=== PATIENT | male | born 1935 | race Caucasian/White ===

== ENCOUNTER 2016-05-26 14:33 | Observation (INO) | payer MEDICARE, OTHER ==
[2016-05-26] VITALS (10 sets, daily range): BP systolic 110–164; BP diastolic 68–107; PULSE 88–125; RESP 18–22; TEMP 98–98.4; O2SAT 90–97
[~2016-05-26] VITALS: Ht 180.3 cm; Wt 113.0 kg
[2016-05-26] MEDS ORDERED: DILTIAZEM HCL 25 MG/5 ML VIAL IV PUSH ONE (15:00)
[2016-05-26] MEDS ORDERED: SODIUM CHLORIDE 0.9% FLUSH 5 ML FLUSH IVF PRN ×2 (15:00→18:15)
[2016-05-26] MEDS ORDERED: OMEP20TA PO (15:01)
[2016-05-26] MEDS ORDERED: VITA10003 PO (15:01)
[2016-05-26] MEDS ORDERED: METO25TA6 PO (15:01)
[2016-05-26] MEDS ORDERED: ALLO100T PO (15:01)
[2016-05-26] MEDS ORDERED: LISI-519 PO (15:01)
[2016-05-26] MEDS ORDERED: METF500T PO (15:01)
[2016-05-26] MEDS ORDERED: XARE20TA PO (15:01)
[2016-05-26] MEDS ORDERED: FISH1000 PO (15:01)
[2016-05-26] MEDS ORDERED: ROSU1TAB4 PO (15:01)
[2016-05-26 15:20] LABS: BASOPHIL # 0.1 TH/MM3 (0-0.2); BASOPHIL % 0.6 % (0.0-2.0); EOSINOPHIL # 0.2 TH/MM3 (0-0.4); EOSINOPHIL % 1.9 % (0.0-4.0); HEMATOCRIT 45.2 % (39.0-51.0); HEMO FLAGS DIFF FINAL; LYMPH % 14.9 % (9.0-44.0); LYMPHOCYTE # 1.3 TH/MM3 (1.0-4.8); MEAN CELL VOLUME 96.8 FL (80.0-100.0); MEAN CORPUSCULAR HEMOGLOBIN 32.5 PG (27.0-34.0); MEAN CORPUSCULAR HGB CONC 33.6 % (32.0-36.0); NEUT % 69.6 % (16.0-70.0); PLATELET COUNT 145 TH/MM3 (150-450); RED BLOOD COUNT 4.67 MIL/MM3 (4.50-5.90); WHITE BLOOD COUNT 8.7 TH/MM3 (4.0-11.0)
[2016-05-26 15:29] LABS: CHLORIDE 104 MEQ/L (98-107); SODIUM (NA) 141 MEQ/L (136-145)
[2016-05-26 15:31] LABS: POTASSIUM 4.5 MEQ/L (3.5-5.1)
[2016-05-26 15:33] LABS: ANION GAP 11 MEQ/L (5-15); BICARBONATE 26.4 MEQ/L (21.0-32.0); MAGNESIUM 1.9 MG/DL (1.5-2.5)
[2016-05-26 15:34] LABS: BLOOD UREA NITROGEN 14 MG/DL (7-18)
[2016-05-26 15:36] LABS: ALT (GPT) 41 U/L (12-78); AST (GOT) 26 U/L (15-37)
[2016-05-26 15:37] LABS: GLOMERULAR FILTRATION RATE 58 ML/MIN (>89)
[2016-05-26 15:38] LABS: TOTAL BILIRUBIN ADULT 1.4 MG/DL (0.2-1.0)
--- NOTE | 2016-05-26 15:38 | PD ---
HPI Chief Complaint: Chest Pain Time Seen by Provider: 14:54 Travel History International Travel<30 days: No Contact w/Intl Traveler<30days: No Traveled to known affect area: No History of Present Illness HPI Patient 81-year-old male presents emergency department for evaluation of chest pain. Patient states she has a history of reflux but this feels somewhat different. He points the center of his chest. No radiation of the pain is been going on since 0100. Denies any shortness of breath radiation to his arm nausea or vomiting. States he has a history of atrial fibrillation and is on Xarelto for it. States the pain was sharp in nature. States right now it's very mild. PFSH Past Medical History Hx Anticoagulant Therapy: Yes Atrial Fibrillation: Yes Cardiovascular Problems: Yes (htn on meds, a-fib) High Cholesterol: Yes Diabetes: Yes Patient Takes Glucophage: Yes GERD: Yes Gout: Yes Hypertension: Yes Influenza Vaccination: No Past Surgical History Cholecystectomy: Yes Social History Alcohol Use: Yes (DAILY) Tobacco Use: No Substance Use: No Allergies-Medications (Allergen,Severity, Reaction): Coded Allergies: No Known Allergies (Unverified , 05/26/16) Reported Meds & Prescriptions Reported Meds & Active Scripts Active Reported Metoprolol Succinate ER 24 HR (Metoprolol Succinate) 25 Mg Tab 25 Mg PO DAILY Lisinopril 5 Mg Tab 5 Mg PO DAILY Allopurinol 100 Mg Tab 100 Mg PO DAILY Fish Oil ([place]-3 Fatty Acids) 1,000 Mg Cap 1 Tab PO DAILY Omeprazole 20 Mg Tab 20 Mg PO DAILY Xarelto (Rivaroxaban) 20 Mg Tab 20 Mg PO DAILY Rosuvastatin (Rosuvastatin Calcium) 5 Mg Tab 5 Mg PO DAILY Metformin (Metformin HCl) 500 Mg Tab 500 Mg PO DAILY With a meal Vitamin D-3 (Cholecalciferol) 1,000 Unit Tab 2,000 Units PO DAILY Review of Systems Except as stated in HPI: all other systems reviewed are Neg Physical Exam Narrative GENERAL: Well-developed well-nourished in no apparent distress. SKIN: Warm and dry. HEAD: Atraumatic. Normocephalic. EYES: Pupils equal and round. No scleral icterus. No injection or drainage. ENT: No nasal bleeding or discharge. Mucous membranes pink and moist. NECK: Trachea midline. No JVD. CARDIOVASCULAR: Irregularly irregular and tachycardic.. No murmur appreciated. RESPIRATORY: No accessory muscle use. Clear to auscultation. Breath sounds equal bilaterally. GASTROINTESTINAL: Abdomen soft, non-tender, nondistended. Hepatic and splenic margins not palpable. MUSCULOSKELETAL: No obvious deformities. No clubbing. No cyanosis. No edema. NEUROLOGICAL: Awake and alert. No obvious cranial nerve deficits. Motor grossly within normal limits. Normal speech. PSYCHIATRIC: Appropriate mood and affect; insight and judgment normal. Data Data Last Documented VS Vital Signs Date Time Temp Pulse Resp B/P Pulse Ox O2 Delivery O2 Flow Rate FiO2 05/26/16 17:35 18 05/26/16 17:29 100 115/72 97 Room Air 05/26/16 14:48 98.4 Orders Electrocardiogram (05/26/16 14:54) Ckmb (Isoenzyme) Profile (05/26/16 14:54) Complete Blood Count With Diff (05/26/16 14:54) Comprehensive Metabolic Panel (05/26/16 14:54) Magnesium (Mg) (05/26/16 14:54) Prothrombin Time / Inr (Pt) (05/26/16 14:54) Act Partial Throm Time (Ptt) (05/26/16 14:54) Troponin I (05/26/16 14:54) Chest, Single Ap (05/26/16 14:54) Ecg Monitoring (05/26/16 14:54) Bilateral Bp Monitoring (05/26/16 14:54) Iv Access Insert/Monitor (05/26/16 14:54) Oximetry (05/26/16 14:54) Oxygen Administration (05/26/16 14:54) Sodium Chloride 0.9% Flush (Ns Flush) (05/26/16 15:00) Diltiazem Inj (Cardizem Inj) (05/26/16 15:00) Ct Pulmonary Angiogram (05/26/16 ) Morphine Inj (Morphine Inj) (05/26/16 16:45) Troponin I (05/26/16 18:00) Ckmb (Isoenzyme) Profile (05/26/16 18:00) Iohexol 350 Inj (Omnipaque 350 Inj) (05/26/16 17:42) Admit Order (Ed Use Only) (05/26/16 18:02) Activity Bed Rest With Brp (05/26/16 18:02) Vital Signs (Adult) Q4H (05/26/16 18:02) Cardiac Rhythm .As Directed (05/26/16 18:02) ^ Notify Dr: Other .PRN (05/26/16 18:02) ^ Notify Dr. Parameters (05/26/16 18:02) Resp Oxygen Nasal Cannula (05/26/16 ) Diet Heart Healthy (05/26/16 Dinner) Ckmb (Isoenzyme) Profile (05/26/16 21:00) Troponin I (05/26/16 21:00) Electrocardiogram (05/26/16 21:00) ^ Obtain (05/26/16 18:02) Sodium Chloride 0.9% Flush (Ns Flush) (05/26/16 18:15) Sodium Chloride 0.9% Flush (Ns Flush) (05/26/16 21:00) Ondansetron Inj (Zofran Inj) (05/26/16 18:15) Pantoprazole (Protonix) (05/26/16 18:15) Insurance Instructor / Telemetry DARION.Q8H (05/26/16 18:02) Labs Laboratory Tests Test 05/26/16 05/26/16 05/26/16 14:50 15:42 18:00 White Blood Count 8.7 TH/MM3 Red Blood Count 4.67 MIL/MM3 Hemoglobin 15.2 GM/DL Hematocrit 45.2 % Mean Corpuscular Volume 96.8 FL Mean Corpuscular Hemoglobin 32.5 PG Mean Corpuscular Hemoglobin 33.6 % Concent Red Cell Distribution Width 13.0 % Platelet Count 145 TH/MM3 Mean Platelet Volume 9.4 FL Neutrophils (%) (Auto) 69.6 % Lymphocytes (%) (Auto) 14.9 % Monocytes (%) (Auto) 13.0 % Eosinophils (%) (Auto) 1.9 % Basophils (%) (Auto) 0.6 % Neutrophils # (Auto) 6.0 TH/MM3 Lymphocytes # (Auto) 1.3 TH/MM3 Monocytes # (Auto) 1.1 TH/MM3 Eosinophils # (Auto) 0.2 TH/MM3 Basophils # (Auto) 0.1 TH/MM3 CBC Comment DIFF FINAL Differential Comment Sodium Level 141 MEQ/L Potassium Level 4.5 MEQ/L Chloride Level 104 MEQ/L Carbon Dioxide Level 26.4 MEQ/L Anion Gap 11 MEQ/L Blood Urea Nitrogen 14 MG/DL Creatinine 1.20 MG/DL Estimat Glomerular Filtration 58 ML/MIN Rate Random Glucose 159 MG/DL Calcium Level 8.6 MG/DL Magnesium Level 1.9 MG/DL Total Bilirubin 1.4 MG/DL Aspartate Amino Transf 26 U/L (AST/SGOT) Alanine Aminotransferase 41 U/L (ALT/SGPT) Alkaline Phosphatase 53 U/L Total Creatine Kinase 81 U/L 50 U/L Troponin I 0.03 NG/ML 0.04 NG/ML Total Protein 7.9 GM/DL Albumin 3.9 GM/DL Prothrombin Time 13.2 SEC Prothromb Time International 1.2 RATIO Ratio Activated Partial 38.9 SEC Thromboplast Time MDM Medical Decision Making Medical Screen Exam Complete: Yes Emergency Medical Condition: Yes Interpretation(s) EKG shows age fibrillation with RVR at a rate of 131. Left axis deviation abnormal R wave progression. Probable remote inferior infarct. No concerning ST T changes. This an abnormal EKG. Differential Diagnosis Age fibrillation with RVR, ACS, AMI, electrolyte abnormality. Narrative Course Patient was roomed in emergency department, appears well on arrival and tachycardic. Blood pressure is elevated. Was given Cardizem 28 mg (0.25 mg/kg ) bolus. Has orders for drip. Has clinical possibility for PE, CT PE ordered. Dr. Grijalva to follow up and disposition appropriately (likely to ICU). Diagnosis Primary Impression: Atrial fibrillation Qualified Code: I48.0 - Paroxysmal atrial fibrillation Kai Lechuga MD May 26, 2016 15:38
[2016-05-26 15:39] LABS: ALKALINE PHOSPHATASE 53 U/L (45-117)
[2016-05-26 15:46] LABS: CREATINE KINASE 81 U/L (39-308)
[2016-05-26 16:03] LABS: APTT (PATIENT) 38.9 SEC (24.3-30.1); INTERNATIONAL NORMALIZED RATIO 1.2 RATIO; PROTHROMBIN TIME - PATIENT 13.2 SEC (9.8-11.6)
--- NOTE | 2016-05-26 16:11 | RADHPO ---
EXAM DATE/TIME: 05/26/2016 16:04 [facility] COMPARISON: No previous studies available for comparison. INDICATIONS : Chest pains today MEDICAL HISTORY : None. SURGICAL HISTORY : None. ENCOUNTER: Initial ACUITY: 1 day PAIN SCORE: 8/10 LOCATION: Bilateral chest FINDINGS: A single view of the chest demonstrates the lungs to be symmetrically aerated without evidence of mas s, infiltrate or effusion. The heart size is mildly prominent. There is mild streaky opacity at the right lung base and left perihilar region. Osseous structures are intact. CONCLUSION: 1. Mild streaky opacities the right lung base and left perihilar region which may represent atelectas is. 2. Mild cardiomegaly. Og Clayton MD on May 26, 2016 at 16:09 Board Certified Radiologist. This report was verified electronically.
--- NOTE | 2016-05-26 16:42 | PD ---
Physical Exam Date Seen by Provider: May 26, 2016 Narrative Care was assumed from Dr. Lechuga at [address] for PE. Patient presented with chest pain that started last night. Radiates up into his neck. He was found to be in atrial fibrillation with RVR. He has been treated with Cardizem. His heart rate is now slowed. He states he feels better but he does still have some pain. Patient reports a long history of intermittent atrial fibrillation. He is on Xarelto for same. He states that he has been traveling and has missed a couple doses of the Xarelto. Patient also reports a history of reflux. He states that he can usually burp and the reflux pain will go away. He states that he has burped several times in the last 12 hours and it has made no change in his pain. Data Data Last Documented VS Vital Signs Date Time Temp Pulse Resp B/P Pulse Ox O2 Delivery O2 Flow Rate FiO2 05/26/16 17:35 18 05/26/16 17:29 100 115/72 97 Room Air 05/26/16 14:48 98.4 Orders Electrocardiogram (05/26/16 14:54) Ckmb (Isoenzyme) Profile (05/26/16 14:54) Complete Blood Count With Diff (05/26/16 14:54) Comprehensive Metabolic Panel (05/26/16 14:54) Magnesium (Mg) (05/26/16 14:54) Prothrombin Time / Inr (Pt) (05/26/16 14:54) Act Partial Throm Time (Ptt) (05/26/16 14:54) Troponin I (05/26/16 14:54) Chest, Single Ap (05/26/16 14:54) Ecg Monitoring (05/26/16 14:54) Bilateral Bp Monitoring (05/26/16 14:54) Iv Access Insert/Monitor (05/26/16 14:54) Oximetry (05/26/16 14:54) Oxygen Administration (05/26/16 14:54) Sodium Chloride 0.9% Flush (Ns Flush) (05/26/16 15:00) Diltiazem Inj (Cardizem Inj) (05/26/16 15:00) Ct Pulmonary Angiogram (05/26/16 ) Morphine Inj (Morphine Inj) (05/26/16 16:45) Troponin I (05/26/16 18:00) Ckmb (Isoenzyme) Profile (05/26/16 18:00) Electrocardiogram (05/26/16 18:00) Iohexol 350 Inj (Omnipaque 350 Inj) (05/26/16 17:42) Labs Laboratory Tests Test 05/26/16 05/26/16 14:50 15:42 White Blood Count 8.7 TH/MM3 Red Blood Count 4.67 MIL/MM3 Hemoglobin 15.2 GM/DL Hematocrit 45.2 % Mean Corpuscular Volume 96.8 FL Mean Corpuscular Hemoglobin 32.5 PG Mean Corpuscular Hemoglobin 33.6 % Concent Red Cell Distribution Width 13.0 % Platelet Count 145 TH/MM3 Mean Platelet Volume 9.4 FL Neutrophils (%) (Auto) 69.6 % Lymphocytes (%) (Auto) 14.9 % Monocytes (%) (Auto) 13.0 % Eosinophils (%) (Auto) 1.9 % Basophils (%) (Auto) 0.6 % Neutrophils # (Auto) 6.0 TH/MM3 Lymphocytes # (Auto) 1.3 TH/MM3 Monocytes # (Auto) 1.1 TH/MM3 Eosinophils # (Auto) 0.2 TH/MM3 Basophils # (Auto) 0.1 TH/MM3 CBC Comment DIFF FINAL Differential Comment Sodium Level 141 MEQ/L Potassium Level 4.5 MEQ/L Chloride Level 104 MEQ/L Carbon Dioxide Level 26.4 MEQ/L Anion Gap 11 MEQ/L Blood Urea Nitrogen 14 MG/DL Creatinine 1.20 MG/DL Estimat Glomerular Filtration 58 ML/MIN Rate Random Glucose 159 MG/DL Calcium Level 8.6 MG/DL Magnesium Level 1.9 MG/DL Total Bilirubin 1.4 MG/DL Aspartate Amino Transf 26 U/L (AST/SGOT) Alanine Aminotransferase 41 U/L (ALT/SGPT) Alkaline Phosphatase 53 U/L Total Creatine Kinase 81 U/L Troponin I 0.03 NG/ML Total Protein 7.9 GM/DL Albumin 3.9 GM/DL Prothrombin Time 13.2 SEC Prothromb Time International 1.2 RATIO Ratio Activated Partial 38.9 SEC Thromboplast Time [facility] Supervised Visit with ALVARO: No Narrative Course Patient is currently awake and alert and in no distress. His heart rate is in the 80s. He is in atrial fibrillation. He is currently awaiting his CT for PE. It has been about an hour 45 minutes since he received a Cardizem bolus. He is not on a drip. Rate is controlled in the 80s. CT CONCLUSION: 1. No evidence of pulmonary embolism. 2. Spiculated mass in the right lower lobe of concern for primary bronchogenic carcinoma. Diagnosis Primary Impression: Chest pain Qualified Code: R07.9 - Chest pain, unspecified type Additional Impression: Atrial fibrillation Qualified Code: I48.0 - Paroxysmal atrial fibrillation Admitting Information Admitting Physician Requests: Observation Condition: Stable Sol Grijalva MD May 26, 2016 16:42
[2016-05-26] MEDS ORDERED: MORPHINE SULFATE 4 MG/ML INJ IV ONE (16:45)
[2016-05-26] MEDS ORDERED: IOHEXOL 350 MG/ML 10 ML VIAL (for RAD DIAG) IV ONE (17:42)
--- NOTE | 2016-05-26 17:53 | RADHPO ---
EXAM DATE/TIME: 05/26/2016 17:06 [facility] COMPARISON: No previous studies available for comparison. INDICATIONS : Chest pain; evaluate for embolism. IV CONTRAST: 72 cc Omnipaque 350 (iohexol) IV RADIATION DOSE: 21.44 CTDIvol (mGy) MEDICAL HISTORY : Cardiovascular disease. Gastroesophageal reflux disease. Hypertension.Diabetes. SURGICAL HISTORY : Cholecystectomy. ENCOUNTER: Initial ACUITY: 1 day PAIN SCALE: 3/10 LOCATION: Bilateral upper chest TECHNIQUE: Volumetric scanning of the chest was performed using a pulmonary embolism protocol MIP images were re constructed. Using automated exposure control and adjustment of the mA and/or kV according to patien t size, radiation dose was kept as low as reasonably achievable to obtain optimal diagnostic quality images. FINDINGS: PULMONARY ARTERIES: No filling defects are seen in the pulmonary arteries through the segmental level. LUNGS: There is no consolidation or pneumothorax . There is a 2.6 x 1.9 cm spiculated mass in the right lowe r lobe. There is scarring and/or atelectasis in the posterior lung bases. PLEURAE: There is no pleural thickening or pleural effusion. MEDIASTINUM: There is good visualization of the great vessels of the middle mediastinum. No evidence of mediastin al or hilar adenopathy/mass. Mild coronary artery calcifications are present. There small scattered r eactive appearing lymph nodes. MUSCULOSKELETAL: Within normal limits for patient age. MISCELLANEOUS: The visualized upper abdominal organs demonstrate no acute abnormality. CONCLUSION: 1. No evidence of pulmonary embolism. 2. Spiculated mass in the right lower lobe of concern for primary bronchogenic carcinoma. Og Clayton MD on May 26, 2016 at 17:50 Board Certified Radiologist. This report was verified electronically.
[2016-05-26] MEDS ORDERED: ONDANSETRON HCL 4 MG/2 ML VIAL IV PRN (18:15)
[2016-05-26] MEDS: PANTOPRAZOLE SOD 40 MG DELAYED RELEASE TAB PO SCH (18:36)
[2016-05-26] MEDS ORDERED: SODIUM CHLORIDE 0.9% FLUSH 5 ML FLUSH IVF SCH (21:00)
[2016-05-27] VITALS (8 sets, daily range): BP systolic 116–149; BP diastolic 83–91; PULSE 88–110; RESP 12–26; TEMP 97.9–98.3; O2SAT 92–95
[2016-05-27] MEDS: PANTOPRAZOLE SOD 40 MG DELAYED RELEASE TAB PO SCH (09:00)
[2016-05-27] MEDS ORDERED: REGADENOSON INJ 0.4 MG/5 ML SYR IV ONE (10:03)
--- NOTE | 2016-05-27 10:16 | HHI.HP ---
[facility]Staff Admission Diagnosis chest pain, AF with RVR Diagnoses: (1) Chest pain Diagnosis: Principal (2) Atrial fibrillation Diagnosis: Principal (3) Lung mass Diagnosis: Principal (4) Hypertension Diagnosis: Secondary (5) Hyperlipidemia Diagnosis: Secondary Chief Complaint: Chest pain Travel History International Travel<30 Days: No Contact w/Intl Traveler <30 Da: No Traveled to Known Affected Are: No History of Present Illness 81-year-old male with known history of hypertension, hyperlipidemia, chronic atrial fibrillation who is visiting here from [facility] who presented to hospital because acute onset of chest pain. Patient states that at approximately 1 AM in the morning he started developing chest discomfort 5/ 10 on a pain scale in the center part of his chest without any radiation to the neck, back, shoulder, arms. Denies any nausea, vomiting, diaphoresis, lightheadedness, dizziness. Patient states that the pain is antagonized whenever he takes a deep breath. Patient indicates that he does get his pain occasionally and he will belch and the pain usually goes away. However it has not done so thus far. The pain remained constant throughout the day so he presented to the emergency department at 1 PM yesterday afternoon. Patient found to have uncontrolled atrial fibrillation with heart rate 120s. Patient was given a dose of Cardizem with improvement of his heart rate. Patient has CTA done of this chest which did not indicate any acute embolic event. However it did indicate a right lung speculated mass. I notify the patient of this abnormality he states that he has had a spot in his right lung for 8 years and has had bronchoscopy and is being followed by his primary medical doctor at this time. Patient does have increased risk factors for cardiac event. He has not had a stress test in 5 years. Review of Systems Constitutional: DENIES: Diaphoretic episodes, Fatigue, Fever, Weight gain, Weight loss, Chills, Dizziness, Change in appetite, Night Sweats Eyes: DENIES: Blurred vision, Diplopia, Eye inflammation, Eye pain, Vision loss , Double Vision Ears, nose, mouth, throat: DENIES: Vertigo, Nasal discharge, Throat pain, Ear Pain, Running Nose, Sinus Pain Respiratory: DENIES: Apneas, Cough, Snoring, Wheezing, Hemoptysis, Sputum production, Shortness of breath Cardiovascular: COMPLAINS OF: Chest pain, DENIES: Palpitations, Syncope, Dyspnea on Exertion, Lower Extremity Edema, Orthopnea Gastrointestinal: DENIES: Abdominal pain, Black stools, Bloody stools, Constipation, Diarrhea, Nausea, Vomiting, Difficulty Swallowing, Anorexia Neurologic: DENIES: Abnormal gait, Headache, Localized weakness, Paresthesias, Seizures, Speech Problems, Tremor, Poor Balance Past Family Social History Past Medical History Hypertension Hyperlipidemia Chronic atrial fibrillation Chronic right lung spot Gout Borderline diabetes Daily alcohol use Gastroesophageal reflux Past Surgical History Cholecystectomy Reported Medications Reported Meds & Active Scripts Active Reported Metoprolol Succinate ER 24 HR (Metoprolol Succinate) 25 Mg Tab 25 Mg PO DAILY Lisinopril 5 Mg Tab 5 Mg PO DAILY Allopurinol 100 Mg Tab 100 Mg PO DAILY Fish Oil ([place]-3 Fatty Acids) 1,000 Mg Cap 1 Tab PO DAILY Omeprazole 20 Mg Tab 20 Mg PO DAILY Xarelto (Rivaroxaban) 20 Mg Tab 20 Mg PO DAILY Rosuvastatin (Rosuvastatin Calcium) 5 Mg Tab 5 Mg PO DAILY Metformin (Metformin HCl) 500 Mg Tab 500 Mg PO DAILY With a meal Vitamin D-3 (Cholecalciferol) 1,000 Unit Tab 2,000 Units PO DAILY Allergies: Coded Allergies: No Known Allergies (Unverified , 05/26/16) Family History Reviewed and significant father from myocardial infarction in the 60s Social History Patient quit smoking 30 years ago prior to that he smoked up to a pack a cigarettes a day when he was 16 years old. Physical Exam Vital Signs Vital Signs Date Time Temp Pulse Resp B/P Pulse Ox O2 Delivery O2 Flow Rate FiO2 05/27/16 08:00 97.9 96 15 122/88 95 05/27/16 03:46 98.3 110 26 134/87 94 05/27/16 00:00 98.0 107 18 116/84 95 05/26/16 21:15 114 05/26/16 21:15 98.0 104 22 136/79 90 05/26/16 21:12 103 18 115/74 94 05/26/16 19:15 97 18 94 Room Air 05/26/16 19:15 97 18 128/93 94 Room Air 05/26/16 18:53 106 18 114/85 96 Room Air 05/26/16 18:08 97 21 05/26/16 17:35 18 05/26/16 17:29 100 18 115/72 97 Room Air 05/26/16 16:15 92 20 110/68 95 Room Air 05/26/16 15:10 88 20 116/68 95 Room Air 05/26/16 15:00 88 116/68 114/70 05/26/16 15:00 20 95 Room Air 05/26/16 15:00 95 Room Air 05/26/16 14:48 98.4 125 18 164/107 94 Physical Exam GENERAL: Well-developed, well-nourished, in no acute distress. alert and orientated HEENT: Head is normocephalic without any lesions or masses noted. Facial features are symmetric. Eyes: Pupils equal round reactive to light. Extraocular muscles are intact. Conjunctivae were clear. Oropharyngeal: Pharynx without any erythema edema. Tongue is midline without deviation. Buccal mucosa is moist without any masses or lesions NECK: Supple without any masses. Trachea midline no deviation. No JVD, no bruits are appreciated CARDIAC: Irregular rhythm, irregular rate. S1/S2 are heard. No murmurs gallops or rubs. LUNGS: Clear to auscultation bilaterally. No wheeze, rhonchi or rales. No use of accessory muscles on inspiration or expiration. ABDOMEN: Soft, nontender. Nondistended. Bowel sounds heard in all 4 quadrants. No organomegaly or masses. Negative rebound, negative guarding EXTREMITIES: No edema, pulses are equal bilaterally. No cyanosis or clubbing NEUROLOGY: Mood and affect appear appropriate. Cranial nerves II through XII grossly intact. Muscle strength 5/5 in upper and lower extremities bilaterally. Deep tendon reflexes are 2+ in upper and lower extremities bilaterally. Laboratory Laboratory Tests Test 05/26/16 05/26/16 05/26/16 05/26/16 14:50 15:42 18:00 20:55 White Blood Count 8.7 Red Blood Count 4.67 Hemoglobin 15.2 Hematocrit 45.2 Mean Corpuscular Volume 96.8 Mean Corpuscular Hemoglobin 32.5 Mean Corpuscular Hemoglobin 33.6 Concent Red Cell Distribution Width 13.0 Platelet Count 145 Mean Platelet Volume 9.4 Neutrophils (%) (Auto) 69.6 Lymphocytes (%) (Auto) 14.9 Monocytes (%) (Auto) 13.0 Eosinophils (%) (Auto) 1.9 Basophils (%) (Auto) 0.6 Neutrophils # (Auto) 6.0 Lymphocytes # (Auto) 1.3 Monocytes # (Auto) 1.1 Eosinophils # (Auto) 0.2 Basophils # (Auto) 0.1 CBC Comment DIFF FINAL Differential Comment Sodium Level 141 Potassium Level 4.5 Chloride Level 104 Carbon Dioxide Level 26.4 Anion Gap 11 Blood Urea Nitrogen 14 Creatinine 1.20 Estimat Glomerular Filtration 58 Rate Random Glucose 159 Calcium Level 8.6 Magnesium Level 1.9 Total Bilirubin 1.4 Aspartate Amino Transf 26 (AST/SGOT) Alanine Aminotransferase 41 (ALT/SGPT) Alkaline Phosphatase 53 Total Creatine Kinase 81 50 48 Troponin I 0.03 0.04 0.04 Total Protein 7.9 Albumin 3.9 Prothrombin Time 13.2 Prothromb Time International 1.2 Ratio Activated Partial 38.9 Thromboplast Time Result Diagram: 05/26/16 1450 05/26/16 1450 Imaging Last Impressions Chest X-Ray 05/26/16 1454 Signed Impressions: Service Date/Time: Thursday, May 26, 2016 16:04 - CONCLUSION: 1. Mild streaky opacities the right lung base and left perihilar region which may represent atelectasis. 2. Mild cardiomegaly. Og Clayton MD CT Angiography 05/26/16 0000 Signed Impressions: Service Date/Time: Thursday, May 26, 2016 17:06 - CONCLUSION: 1. No evidence of pulmonary embolism. 2. Spiculated mass in the right lower lobe of concern for primary bronchogenic carcinoma. Og Clayton MD Assessment and Plan Assessment and Plan Chest pain, atypical: Patient does have increased risk factors include hypertension, hyperlipidemia, borderline diabetes, and history of tobacco use, family history of heart disease. Been ruled out for any acute coronary event with serial cardiac enzymes which were negative, serial EKGs show atrial fibrillation without any changes. Patient did undergo nuclear stress test which did not indicate any signs of ischemia. Low risk. Will continue patient' s home medication with aspirin, beta ziggy, statin. Right lung spiculated mass: Patient indicates that he has had a spot on his right lung for over 8 years and is being followed by his primary medical doctor in [place]. Patient deferring any workup at this time. He wants to follow-up with his own physician in [place] when he returns here from vacation. Hypertension, atrial fibrillation, hyperlipidemia: Continue home medications Diabetes: Hold metformin at this time due to patient receiving contrasted CT. We'll continue to monitor Accu-Cheks and use sliding scale insulin if needed DVT prevention patient is on Xarelto Written by Sea Brown PA-C, acting as scribe for Dr. Crowder on 05/27/16 at 1220. The documentation accurately reflects the work and decisions performed face-to- face by Dr. Crowder on 05/27/16 at 1220. Discharge disposition Discharge home in stable condition Activity: Ad prosper. Diet: Healthy heart diet Medications per medication reconciliation Follow-up primary medical doctor in one week Problem Qualifiers (1) Chest pain: Qualified Code: R07.9 - Chest pain, unspecified type (2) Atrial fibrillation: Qualified Code: I48.0 - Paroxysmal atrial fibrillation (3) Hypertension: Qualified Code: I15.9 - Secondary hypertension (4) Hyperlipidemia: Qualified Code: E78.5 - Hyperlipidemia, unspecified hyperlipidemia type Sea Brown May 27, 2016 10:16 Ashley Crowder MD May 27, 2016 13:12
--- NOTE | 2016-05-27 11:11 | RADHPO ---
EXAM DATE/TIME: 05/27/2016 10:22 [place] COMPARISON: No previous studies available for comparison. INDICATIONS : Substernal chest pain. Atrial fibrillation. DOSE: 35 mCi Tc99m Myoview at stress. 11 mCi Tc99m Myoview at rest. 0.4 mg Lexiscan STRESS SYMPTOMS: Dyspnea. EJECTION FRACTION: 60% MEDICAL HISTORY : Hypertension. Diabetes mellitus type 2. Gastroesophageal reflux disease. SURGICAL HISTORY : Cholecystectomy. ENCOUNTER: Initial ACUITY: 1 day PAIN SCALE: 5/10 LOCATION: Substernal chest TECHNIQUE: The patient underwent pharmacologic stress with infusion of prescribed dose. Continuous ECG tracing was monitored during stress. Gated SPECT imaging was performed after stress and conventional SPECT i maging was performed at rest. The examination was performed on a SPECT/CT scanner, both attenuation and non-corrected datasets were reviewed. FINDINGS: DISTRIBUTION: The maximum perfused segment at stress is in the septal wall. PERFUSION STUDY: The pattern of perfusion at stress is within normal limits. GATED STUDY: There is intact wall motion and thickening without hypokinetic or dyskinetic segments. CONCLUSION: 1. No reversible perfusion defect to suggest stress-induced myocardial ischemia identified. RISK CATEGORY: Low (<1% Annual Mortality Rate) Wilbert Mary MD on May 27, 2016 at 11:08 Board Certified Radiologist. This report was verified electronically.
[2016-05-27] MEDS ORDERED: ATORVASTATIN 10 MG TAB PO SCH (12:00)
[2016-05-27] MEDS ORDERED: LISINOPRIL 5 MG TAB PO SCH (12:00)
[2016-05-27] MEDS ORDERED: METOPROLOL SUCCINATE 25 MG EXTENDED RELEASE TAB PO SCH (12:00)
[2016-05-27] MEDS ORDERED: PANTOPRAZOLE SOD 20 MG DELAYED RELEASE TAB PO SCH (12:00)
[2016-05-27] MEDS ORDERED: RIVAROXABAN 20 MG TAB PO SCH (12:00)
[2016-05-27] MEDS ORDERED: ALLOPURINOL 100 MG TAB PO SCH (12:00)
--- NOTE | 2016-05-27 12:21 | HHI.DCPOC ---
Discharge Care Plan Diagnosis: (1) Chest pain Goals to Promote Your Health * To prevent worsening of your condition and complications * To maintain your health at the optimal level Directions to Meet Your Goals Take your medications as prescribed Follow your dietary instruction Follow activity as directed Keep your appointments as scheduled Take your immunizations and boosters as scheduled If your symptoms worsen call your PCP, if no PCP go to Urgent Care Center or Emergency Room Smoking is Dangerous to Your Health. Avoid second hand smoke Call the 24-hour hour crisis hotline for domestic abuse at [place] May 27, 2016 12:21
--- NOTE | 2016-05-27 16:07 | EKG ---
Date Performed: 05/26/2016 Time Performed: 14:46:46 PTAGE: 81 years EKG: Atrial fibrillation with rapid ventricular response. Left axis deviation Possible anterior infarct - age undetermined Low QRS voltages in precordial leads Abnormal ECG NO PREVIOUS TRACING DOCTOR: Wilmer Moreno Interpretating Date/Time 05/27/2016 16:05:55
--- NOTE | 2016-05-27 16:07 | EKG ---
Date Performed: 05/26/2016 Time Performed: 20:55:56 PTAGE: 81 years EKG: --- Warning: Data quality may affect interpretation --- Possible atrial flutter with rapid ventricular response. Lead(s) unsuitable for analysis: V1 Left axis deviation Possible anterior infar ct - age undetermined Abnormal ECG PREVIOUS TRACING : 05/26/2016 14.46 Since previous tracing, no significant change noted DOCTOR: Wilmer Moreno Interpretating Date/Time 05/27/2016 16:05:33
--- NOTE | 2016-05-27 16:14 | TR ---
Date Performed: 05/27/2016 Time Performed: 10:23:32 DOCTOR: Wilmer Moreno DRUG LIST: CLINICAL HISTORY: CHEST PAIN REASON FOR TEST: Chest pain REASON FOR ENDING: OBSERVATION: CONCLUSION: Lexiscan stress test was performed under standard four minute protocol. [place]ion[place] e was injected one minute prior to ending the test. No electrocardiographic abormalities were present to suggest ischemia. Nuclear imaging and interpretation are pending. COMMENTS:
== END 2016-05-27 14:40 | disposition home or self-care (01) ==
LOC: PHED 14:33 → PHEDA 18:06 → PHICU 21:07
PROVIDERS: ADMIT Hospitalist; ATTEND Hospitalist
DX: R07.89 Other chest pain (principal); I48.0 Paroxysmal atrial fibrillation; I11.9 Hypertensive heart disease without heart failure; I51.7 Cardiomegaly; R91.8 Other nonspecific abnormal finding of lung field; E78.5 Hyperlipidemia, unspecified; E11.9 Type 2 diabetes mellitus without complications; E78.00 Pure hypercholesterolemia, unspecified; K21.9 Gastro-esophageal reflux disease without esophagitis; M10.9 Gout, unspecified; Z79.01 Long term (current) use of anticoagulants; Z87.891 Personal history of nicotine dependence; Z82.49 Family history of ischemic heart disease and other diseases of the circulatory system
CPT/HCPCS: 71010; 71275; 78452; 80053; 82550; 83735; 84484; 85025; 85610; 85730; 93005; 93017; 96374; 96375; 99285; A9502; G0378; J2270; J2785; Q9967